=== PATIENT | female | born 1965 | race Caucasian/White ===

== ENCOUNTER 2021-09-07 06:59 | Emergency (ER) | payer OTHER ==
[2021-09-07] MEDS ORDERED: NAPROXEN500 MG PO (07:44)
== END 2021-09-07 08:02 | disposition home or self-care (01) ==
LOC: FER 06:59
DX: G89.29 Other chronic pain (principal); M25.562 Pain in left knee
CPT/HCPCS: 99283

== ENCOUNTER 2021-09-13 08:46 | Emergency (ER) | payer OTHER ==
[~2021-09-13 08:46] MED LIST: NAPROXEN500 MG PO
== END 2021-09-13 10:52 | disposition home or self-care (01) ==
LOC: FER 08:46
DX: M25.562 Pain in left knee (principal)
CPT/HCPCS: 99283

== ENCOUNTER 2021-09-18 09:43 | Emergency (ER) | payer OTHER ==
[2021-09-18] MEDS ORDERED: PERCOCET 5-3251 EACH PO (11:48)
== END 2021-09-18 12:16 | disposition home or self-care (01) ==
LOC: FER 09:43
DX: S83.207A Unspecified tear of unspecified meniscus, current injury, left knee, initial encounter (principal); W19.XXXA Unspecified fall, initial encounter; Y92.009 Unspecified place in unspecified non-institutional (private) residence as the place of occurrence of the external cause
CPT/HCPCS: 73564